=== PATIENT | female | born 1980 | race Caucasian/White ===

== ENCOUNTER 2017-01-01 19:31 | Emergency (ER) | payer OTHER ==
[2017-01-01 19:43] VITALS: BP 147/86
[2017-01-01] MEDS ORDERED: HYDROcodone/ACETAMIN 5-325 MG* 1 TAB PO ONE (20:45)
--- NOTE | 2017-01-01 20:51 | UC ---
Back Pain HPI - HPI Summary HPI Summary: C/o R post hip pain with pain radiating down back of leg. + hx sciatica since 2004, but has not bothered her much until today. She stood up and noted a sharp burning nerve pain. No weakness. No b/b leakage. No new paresth / dysth. 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 No rash. Pain is better standing up, worse sitting down. - History of Current Complaint Chief Complaint: UCBackPain Stated Complaint: LOW BACK PAIN Time Seen by Provider: 01/01/17 20:32 Hx Obtained From: Patient, Family/Online Publisher Hx Last Menstrual Period: 05/2015 ?: No - Allergies/Home Medications Allergies/Adverse Reactions: Allergies Allergy/AdvReac Type Severity Reaction Status Date / Time No Known Allergies Allergy Verified 01/01/17 19:43 Home Medications: Home Medications Magnesium Oxide [Magnesium Oxide-] 400 mg PO TID 01/01/17 [History Confirmed ] Tamoxifen TAB* [Nolvadex 10 MG*] 20 mg PO DAILY 01/01/17 [History Confirmed ] PMH/Surg Hx/FS Hx/Imm Hx Previously Healthy: No - see hpi Endocrine History Of: Denies: Diabetes, Thyroid Disease Cardiovascular History Of: Denies: Cardiac Disorders, Hypertension, Pacemaker/ICD, Congestive Heart Failure Respiratory History Of: Denies: COPD, Asthma GI/ History Of: Denies: Gastroesophageal Reflux, Renal Disease Neurological History Of: Reports: Seizures - at , denies since 1979 Denies: CVA, Dementia Other History Of: Negative For: Anticoagulant Therapy - Surgical History Surgical History: Yes Surgery Procedure, Year, and Place: right lumpectomy with lymph node removal 2014 - Social History Alcohol Use: None Substance Use Type: None Smoking Status (MU): Never Smoked Tobacco Household Exposure Type: Cigarettes Review of Systems Constitutional: Negative Skin: Negative Eyes: Negative ENT: Negative Respiratory: Negative Cardiovascular: Negative Gastrointestinal: Negative Genitourinary: Negative Motor: Other - see hpi Neurovascular: Other - see hpi Musculoskeletal: Other: - see hpi Neurological: Other - see hpi Psychological: Negative All Other Systems Reviewed And Are Negative: Yes Physical Exam Triage Information Reviewed: Yes Appearance: Well-Appearing - but + pain with examination. Examination w/ pt mostly standing up for comfort., Well-Nourished Vital Signs: Initial Vital Signs Temp 97.1 F 01/01/17 19:37 Pulse 110 01/01/17 19:37 Resp 18 01/01/17 19:37 BP 147/86 01/01/17 19:37 Pulse Ox 99 01/01/17 19:37 Vital Signs Reviewed: Yes Eye Exam: Normal - grossly normal ENT Exam: Normal - grossly normal Neck exam: Normal Neck: Positive: Supple, Nontender Respiratory Exam: Normal Respiratory: Positive: Chest non-tender, Lungs clear, Normal breath sounds, No respiratory distress Cardiovascular Exam: Normal Cardiovascular: Positive: RRR, No Murmur, Pulses Normal, Brisk Capillary Refill Abdominal Exam: Normal Musculoskeletal Exam: Other - tender R post hip - subj rad to post thigh Neurological Exam: Other - + ble neuropathy DTR's not tested 2/2 painful sitting on table. She is able to stand on toes, and able to stand on heels. Psychological Exam: Normal Skin Exam: Normal Back Pain Course/Dx - Course Course Of Treatment: [facility] Ref #: [id number]. D/w f/u and coa with pt and family. She is due for a f/u ct scan (2/2 hx breast cancer) soon. Further back imaging as needed can be per pcp. She will call Wednesday to arrange f/u with PCP this week. Denies hx addiction. ISTop referenced, no report. Rx: ibuprofen and norco and flexeril. Questions answered to the best of my ability. - Differential Dx/Diagnosis Provider Diagnoses: Acute exacerbation of R sciatica Discharge - Discharge Plan Condition: Stable Disposition: HOME Prescriptions: HYDROcodone/ACETAMIN 5-325 MG* [[place] 5-325 TAB*] 2 tab PO Q8H PRN #30 tab MDD 6 PRN Reason: Pain Ibuprofen TAB* [Motrin TAB* 600 MG] 600 mg PO Q8H PRN #30 tab PRN Reason: Pain Patient Education Materials: Sciatica (ED), Narcotic Pain Management (ED) Referrals: Tyrone Harmon PA [Primary Care Provider] - Additional Instructions: Follow up with your primary care provider - this week. Call on Wednesday to schedule appointment. Please seek medical attention for worse or new problems in the meantime.
== END 2017-01-01 21:02 | disposition home or self-care (01) ==
LOC: UCCORT 19:31
DX: M54.31 Sciatica, right side (principal); Z77.22 Contact with and (suspected) exposure to environmental tobacco smoke (acute) (chronic)
CPT/HCPCS: 99212; G0463

== ENCOUNTER 2021-04-22 04:53 | Inpatient (IN) ==
[2021-04-22 05:58] LABS: ABS Basophils 0.1 10^3/ul (0-0.2); ABS Lymphocytes 1.4 10^3/ul (1.0-4.8); ABS Monocytes 0.7 10^3/ul (0-0.8); ABS Neutrophils 5.1 10^3/ul (1.5-7.7); Eosinophil % 0.1 %; Hematocrit 39 % (35-47); Hemoglobin 12.2 g/dL (12.0-16.0); Lymphocyte % 19.5 %; Mean Corpuscular HGB Conc 31 g/dL (31-36); Mean Corpuscular Hemoglobin 26 pg (27-31); Mean Corpuscular Volume 84 fL (80-97); Mean Platelet Volume 9.2 fL (7.4-10.4); Nucleated Red Blood Cells % 0.1; Platelet Count 398 10^3/uL (150-450); Red Blood Count 4.71 10^6 /uL (3.70-4.87); Red Cell Distribution Width 15 % (10-15); White Blood Count 7.2 10^3/uL (3.5-10.8)
[2021-04-22 06:15] LABS: ALT 25 U/L (7-52); Albumin 4.7 g/dL (3.2-5.2); Alkaline Phosphatase 152 U/L (35-149); Blood Urea Nitrogen 111 mg/dL (6-24); C Reactive Protein 1.77 mg/L (<8.01); Chloride 73 mmol/L (101-111); Creatine Kinase 16 U/L (10-223); EGFR African American 23.7 (>60); EGFR Non-African American 19.6 (>60); Globulin 4.7 g/dL (2-4); Sodium 140 mmol/L (135-145); Total Protein 9.4 g/dL (6.4-8.9)
[2021-04-22 06:22] LABS: PCO2 Arterial 55 mmHg (35-45); PO2 Arterial 107 mmHg (80-100)
[2021-04-22] MEDS ORDERED: Ondansetron 4 mg VIAL 2 MG/ML 2 ml VIAL IV ONE (06:40)
[2021-04-22] MEDS ORDERED: Dextrose 50% Syringe 50 ml 25 GM/50 ML SYRINGE IV PUSH ONE (06:40)
[2021-04-22 06:47] LABS: CO2 Carbon Dioxide 45 mmol/L (22-32); Calcium 13.5 mg/dL (8.6-10.3); Glucose 45 mg/dL (70-100); Troponin I 0.12 ng/mL (<0.03)
[2021-04-22] MEDS ORDERED: Cefepime 2 GM in NS 0.9% 50 ML 50 ML IVPB ONE (06:51)
[2021-04-22] MEDS ORDERED: LACTATED RINGERS IV ONE (06:51)
[2021-04-22] MEDS ORDERED: Levofloxacin 750 MG IVPREMIX 750 MG/150 ML BAG IVPB ONE (06:51)
[2021-04-22 06:57] LABS: Anion Gap 22 mmol/L (2-11)
[2021-04-22] MEDS ORDERED: NS 0.9% 50 ML 50 ML ONE (07:03)
[2021-04-22] MEDS ORDERED: Cefepime 2 GM IV - ED ONCE IV ONE (08:00)
[2021-04-22] MEDS ORDERED: NS 0.9% 1000 ml BAG 1,000 ML IV SCH (08:15)
[2021-04-22] MEDS: Pantoprazole VIAL 40 MG VIAL IV SCH (08:54)
[2021-04-22 09:26] LABS: INR 1.19 (0.86-1.15)
[2021-04-22 09:49] LABS: AST Redraw 62 U/L (13-39); Potassium Redraw 3.2 mmol/L (3.5-5.0)
[2021-04-22 09:57] LABS: Troponin I 0.12 ng/mL (<0.03)
[2021-04-22 12:54] LABS: Urine Appearance Cloudy; Urine Bilirubin Negative (Negative); Urine Blood 2+ (Negative); Urine Color Amber; Urine Glucose Negative (Negative); Urine Ketones Negative (Negative); Urine Nitrite Negative (Negative); Urine Protein 1+(30 mg/dL) (Negative); Urine Specific Gravity 1.017 (1.002-1.030); Urine Urobilinogen Negative (Negative)
[2021-04-22 12:58] LABS: Urine Bacteria Absent (Absent); Urine Red Blood Cell 1+(3-5/hpf) (Absent); Urine Squamous Epithelial Cell Present (Absent); Urine White Blood Cell 2+(11-20/hpf) (Absent)
[2021-04-22] MEDS ORDERED: Zoledronic Acid 4 MG in NS 0.9% 100 ml BAG 100 ML IVPB ONE (15:41)
[2021-04-22 18:00] LABS: Vitamin D Total 25(OH) 16.4 ng/mL (20-50)
[2021-04-22] MEDS: Cefepime 1 GM in Dextrose 1 GM/50 ML BAG IV SCH (20:28)
[2021-04-22] MEDS: Heparin 5000 UNITS/ML 1 mL VIAL SUBCUT SCH (22:53)
[2021-04-22 23:54] LABS: Calcium 12.2 mg/dL (8.6-10.3)
[2021-04-23] MEDS: Ondansetron 4 mg VIAL 2 MG/ML 2 ml VIAL IV PRN ×2 (01:11→15:36)
[2021-04-23] MEDS: Heparin 5000 UNITS/ML 1 mL VIAL SUBCUT SCH ×3 (05:12→22:51)
[2021-04-23 07:23] LABS: ABS Lymphocytes 0.7 10^3/ul (1.0-4.8); ABS Monocytes 0.3 10^3/ul (0-0.8); ABS Neutrophils 10.2 10^3/ul (1.5-7.7); Eosinophil % 0.1 %; Hematocrit 35 % (35-47); Lymphocyte % 6.3 %; Mean Corpuscular HGB Conc 31 g/dL (31-36); Mean Corpuscular Hemoglobin 26 pg (27-31); Mean Corpuscular Volume 83 fL (80-97); Mean Platelet Volume 9.1 fL (7.4-10.4); Nucleated Red Blood Cells % 0.1; Platelet Count 253 10^3/uL (150-450); Red Blood Count 4.24 10^6 /uL (3.70-4.87); Red Cell Distribution Width 15 % (10-15); White Blood Count 11.3 10^3/uL (3.5-10.8)
[2021-04-23 07:40] LABS: Calcium 11.9 mg/dL (8.6-10.3); Potassium 3.4 mmol/L (3.5-5.0)
[2021-04-23 07:45] LABS: EGFR African American 26.8 (>60); EGFR Non-African American 22.1 (>60)
[2021-04-23] MEDS ORDERED: Potassium Chlor 20 meq TAB.ER PO ONE ×2 (08:25→16:36)
[2021-04-23] MEDS: Pantoprazole VIAL 40 MG VIAL IV SCH (08:33)
[2021-04-23 09:30] LABS: Magnesium 1.2 mg/dL (1.9-2.7)
[2021-04-23] MEDS: Cefepime 1 GM in Dextrose 1 GM/50 ML BAG IV SCH ×2 (09:39→22:49)
[2021-04-23] MEDS ORDERED: Dextrose 50% VIAL 50 ml IV PRN (11:13)
[2021-04-23] MEDS ORDERED: Lactated Ringers 1000 ml BAG 1,000 ML IV SCH (12:00)
[2021-04-23] MEDS ORDERED: D5W 1000 ml BAG 1,000 ML IV SCH ×2 (12:00)
[2021-04-23] MEDS ORDERED: Lactated Ringers 1000 ml BAG 1,000 ML IV ONE ×3 (15:28→17:00)
[2021-04-23 16:28] LABS: Calcium 11.6 mg/dL (8.6-10.3); EGFR African American 28.9 (>60); EGFR Non-African American 23.9 (>60)
[2021-04-23] MEDS ORDERED: Magnesium Sulf 4 GM/100 ML IV 4,000 MG/100 ML BAG IVPB ONE (16:36)
[2021-04-23] MEDS: KCL 20 MEQ/100 ML IVPREMIX 20 MEQ/100 ML BAG IV SCH (23:35)
[2021-04-24] MEDS ORDERED: Lactated Ringers 1000 ml BAG 1,000 ML IV SCH (00:05)
[2021-04-24] MEDS: KCL 20 MEQ/100 ML IVPREMIX 20 MEQ/100 ML BAG IV SCH ×3 (02:16→15:27)
[2021-04-24] MEDS: Heparin 5000 UNITS/ML 1 mL VIAL SUBCUT SCH ×3 (05:41→20:05)
[2021-04-24 08:05] LABS: ABS Basophils 0.1 10^3/ul (0-0.2); ABS Lymphocytes 0.5 10^3/ul (1.0-4.8); ABS Monocytes 0.4 10^3/ul (0-0.8); ABS Neutrophils 8.5 10^3/ul (1.5-7.7); Eosinophil % 0.1 %; Hematocrit 31 % (35-47); Hemoglobin 9.9 g/dL (12.0-16.0); Lymphocyte % 5.4 %; Mean Corpuscular HGB Conc 32 g/dL (31-36); Mean Corpuscular Hemoglobin 26 pg (27-31); Mean Corpuscular Volume 83 fL (80-97); Mean Platelet Volume 9.4 fL (7.4-10.4); Platelet Count 181 10^3/uL (150-450); Red Blood Count 3.73 10^6 /uL (3.70-4.87); Red Cell Distribution Width 15 % (10-15); White Blood Count 9.6 10^3/uL (3.5-10.8)
[2021-04-24 08:20] LABS: EGFR Non-African American 31.7 (>60); Potassium 3.3 mmol/L (3.5-5.0)
[2021-04-24 08:21] LABS: EGFR African American 38.3 (>60); Magnesium 2.3 mg/dL (1.9-2.7)
[2021-04-24] MEDS: Cefepime 1 GM in Dextrose 1 GM/50 ML BAG IV SCH ×2 (08:46→19:42)
[2021-04-24] MEDS: LACTATED RINGERS 1000 ML BAG IV SCH ×2 (08:46→23:17)
[2021-04-24] MEDS: Pantoprazole VIAL 40 MG VIAL IV SCH (08:46)
[2021-04-24] MEDS: Ondansetron 4 mg VIAL 2 MG/ML 2 ml VIAL IV PRN (13:51)
[2021-04-24 15:18] LABS: Kappa Free Light Chain 16.2 mg/dL; Lambda Free Light Chain, S 5.23 mg/dL
[2021-04-24 17:50] LABS: Calcium 10.6 mg/dL (8.6-10.3); EGFR Non-African American 37.2 (>60); Magnesium 1.9 mg/dL (1.9-2.7); Potassium 3.9 mmol/L (3.5-5.0)
[2021-04-25] MEDS: Heparin 5000 UNITS/ML 1 mL VIAL SUBCUT SCH (04:35)
[2021-04-25 04:51] LABS: ABS Basophils 0.1 10^3/ul (0-0.2); ABS Eosinophils 0.1 10^3/ul (0-0.6); ABS Lymphocytes 0.7 10^3/ul (1.0-4.8); ABS Monocytes 0.6 10^3/ul (0-0.8); ABS Neutrophils 5.2 10^3/ul (1.5-7.7); Eosinophil % 1.2 %; Hematocrit 30 % (35-47); Hemoglobin 9.4 g/dL (12.0-16.0); Lymphocyte % 10.2 %; Mean Corpuscular HGB Conc 32 g/dL (31-36); Mean Corpuscular Hemoglobin 26 pg (27-31); Mean Corpuscular Volume 83 fL (80-97); Mean Platelet Volume 9.3 fL (7.4-10.4); Platelet Count 153 10^3/uL (150-450); Red Blood Count 3.59 10^6 /uL (3.70-4.87); Red Cell Distribution Width 15 % (10-15); White Blood Count 6.6 10^3/uL (3.5-10.8)
[2021-04-25 05:07] LABS: ALT 18 U/L (7-52); AST 58 U/L (13-39); Albumin/Globulin Ratio 0.9 (1-3); Alkaline Phosphatase 154 U/L (35-149); Blood Urea Nitrogen 69 mg/dL (6-24); Calcium 10.3 mg/dL (8.6-10.3); Chloride 90 mmol/L (101-111); EGFR African American 52.5 (>60); EGFR Non-African American 43.4 (>60); Globulin 3.2 g/dL (2-4); Glucose 64 mg/dL (70-100); Magnesium 1.6 mg/dL (1.9-2.7); Potassium 3.4 mmol/L (3.5-5.0); Sodium 136 mmol/L (135-145); Total Protein 6.2 g/dL (6.4-8.9)
[2021-04-25 05:08] LABS: Anion Gap 4 mmol/L (2-11); CO2 Carbon Dioxide 42 mmol/L (22-32)
[2021-04-25 05:52] LABS: LDH 335 U/L (140-271)
[2021-04-25] MEDS ORDERED: Magnesium Sulfate IV 3 GM in NS 0.9% 100 ml BAG 100 ML IVPB ONE (05:57)
[2021-04-25] MEDS ORDERED: Potassium Chlor 20 meq TAB.ER PO ONE ×2 (05:57→08:00)
[2021-04-25] MEDS ORDERED: Dextrose 50% Syringe 50 ml 25 GM/50 ML SYRINGE PRN (06:02)
[2021-04-25] MEDS: LACTATED RINGERS 1000 ML BAG IV SCH (06:40)
[2021-04-25] MEDS ORDERED: KCL 20 MEQ/100 ML IVPREMIX 20 MEQ/100 ML BAG IV SCH (07:00)
[2021-04-25 08:15] LABS: Phosphorus < 1.0 mg/dL (2.5-5.0)
[2021-04-25] MEDS: Pantoprazole VIAL 40 MG VIAL IV SCH (08:38)
[2021-04-25] MEDS: Cefepime 1 GM in Dextrose 1 GM/50 ML BAG IV SCH (08:38)
[2021-04-25] MEDS ORDERED: POTASSIUM PHOSPHATE IVPB ONE (09:00)
[2021-04-25] MEDS ORDERED: NS IVPB ONE (09:00)
[2021-04-25] MEDS ORDERED: fentaNYL 100 mcg/2 ml 50 MCG/ML VIAL ONE (13:02)
[2021-04-25 13:54] LABS: PTH Related Peptide 7.6 pmol/L (< or = 4.2)
[2021-04-25] MEDS: NS 0.9% 1000 ml BAG 1,000 ML IV SCH ×2 (14:27→20:48)
[2021-04-25 15:08] LABS: Albumin 3.1 g/dL (3.4-4.7); Albumin/Globulin Ratio 0.77; Gamma Globulin 1.8 g/dL (0.6-1.6); Total Protein(PEP) 7.1 g/dL (6.3 - 7.9)
[2021-04-25] MEDS: Albuterol 2.5mg/3 ml (0.083%) NEB.SOLN INH SCH ×3 (16:22→23:47)
[2021-04-25 17:18] LABS: Anion Gap 9 mmol/L (2-11); Blood Urea Nitrogen 61 mg/dL (6-24); CO2 Carbon Dioxide 36 mmol/L (22-32); Calcium 9.4 mg/dL (8.6-10.3); Chloride 93 mmol/L (101-111); EGFR African American 63.9 (>60); EGFR Non-African American 52.8 (>60); Glucose 66 mg/dL (70-100); Magnesium 1.8 mg/dL (1.9-2.7); Phosphorus 2.9 mg/dL (2.5-5.0); Potassium 3.7 mmol/L (3.5-5.0); Sodium 138 mmol/L (135-145)
[2021-04-25 17:41] LABS: % Iron Saturation 15 % (15-55); Iron 40 ug/dL (50-212); Total Iron Binding Capacity 259 mcg/dL (250-450); Transferrin 185 mg/dL (203-362); Unsaturated Iron Binding < 244 ug/dL
[2021-04-25] MEDS ORDERED: Magnesium Sulfate 2 gm BAG 2 GM/50 ML BAG IVPB ONE (17:49)
[2021-04-25] MEDS: oxyCODONE/Acetamin 5/325 mg TAB PO PRN (17:54)
[2021-04-25 18:01] LABS: Ferritin 179.5 ng/mL (11-307)
[2021-04-26] MEDS: NS 0.9% 1000 ml BAG 1,000 ML IV SCH (03:38)
[2021-04-26] MEDS: Albuterol 2.5mg/3 ml (0.083%) NEB.SOLN INH SCH ×2 (05:15→15:46)
[2021-04-26] MEDS ORDERED: NS 0.9% 1000 ml BAG 1,000 ML IV SCH (06:16)
[2021-04-26 07:49] LABS: Albumin 3.4 g/dL (3.2-5.2); Albumin/Globulin Ratio 0.9 (1-3); Calcium 9.2 mg/dL (8.6-10.3); EGFR African American 75.3 (>60); EGFR Non-African American 62.2 (>60); Globulin 3.8 g/dL (2-4); Magnesium 2.2 mg/dL (1.9-2.7); Phosphorus 1.8 mg/dL (2.5-5.0); Potassium 3.8 mmol/L (3.5-5.0); Total Bilirubin 0.9 mg/dL (0.2-1.0); Total Protein 7.2 g/dL (6.4-8.9)
[2021-04-26] MEDS: Potassium Chlor 20 meq TAB.ER PO SCH (09:06)
[2021-04-26] MEDS: Pantoprazole VIAL 40 MG VIAL IV SCH (09:06)
[2021-04-26] MEDS: oxyCODONE/Acetamin 5/325 mg TAB PO PRN (12:23)
[2021-04-26] MEDS: Enoxaparin 40 MG/0.4 ML SYR SUBCUT SCH (12:23)
[2021-04-27] MEDS: Albuterol 2.5mg/3 ml (0.083%) NEB.SOLN INH SCH ×3 (01:34→11:52)
[2021-04-27] MEDS: Pantoprazole VIAL 40 MG VIAL IV SCH (09:48)
[2021-04-27] MEDS: Potassium Chlor 20 meq TAB.ER PO SCH (09:49)
[2021-04-27 10:12] LABS: ABS Lymphocytes 0.9 10^3/ul (1.0-4.8); ABS Monocytes 0.9 10^3/ul (0-0.8); ABS Neutrophils 3.9 10^3/ul (1.5-7.7); Eosinophil % 0.4 %; Hematocrit 31 % (35-47); Hemoglobin 9.5 g/dL (12.0-16.0); Mean Corpuscular HGB Conc 31 g/dL (31-36); Mean Corpuscular Hemoglobin 26 pg (27-31); Mean Corpuscular Volume 84 fL (80-97); Mean Platelet Volume 9.3 fL (7.4-10.4); Nucleated Red Blood Cells % 0.1; Platelet Count 204 10^3/uL (150-450); Red Blood Count 3.68 10^6 /uL (3.70-4.87); Red Cell Distribution Width 16 % (10-15); White Blood Count 5.7 10^3/uL (3.5-10.8)
[2021-04-27 10:26] LABS: Albumin 3.2 g/dL (3.2-5.2); Albumin/Globulin Ratio 0.9 (1-3); Calcium 8.5 mg/dL (8.6-10.3); EGFR African American 112.9 (>60); EGFR Non-African American 93.3 (>60); Globulin 3.6 g/dL (2-4); Magnesium 1.3 mg/dL (1.9-2.7); Phosphorus 1.4 mg/dL (2.5-5.0); Potassium 3.9 mmol/L (3.5-5.0); Total Bilirubin 0.9 mg/dL (0.2-1.0); Total Protein 6.8 g/dL (6.4-8.9)
[2021-04-27] MEDS ORDERED: Magnesium Sulf 4 GM/100 ML IV 4,000 MG/100 ML BAG IVPB ONE (11:36)
[2021-04-27] MEDS: Potassium & Sodium Phos 250 mg = 1 PACKET PO SCH ×2 (12:35→21:32)
[2021-04-27] MEDS: Enoxaparin 40 MG/0.4 ML SYR SUBCUT SCH (12:35)
[2021-04-28 07:21] LABS: ABS Basophils 0.1 10^3/ul (0-0.2); ABS Lymphocytes 0.7 10^3/ul (1.0-4.8); ABS Monocytes 0.7 10^3/ul (0-0.8); ABS Neutrophils 3.9 10^3/ul (1.5-7.7); Eosinophil % 0.1 %; Hematocrit 30 % (35-47); Hemoglobin 9.5 g/dL (12.0-16.0); Lymphocyte % 12.7 %; Mean Corpuscular HGB Conc 32 g/dL (31-36); Mean Corpuscular Hemoglobin 27 pg (27-31); Mean Corpuscular Volume 84 fL (80-97); Mean Platelet Volume 9.4 fL (7.4-10.4); Nucleated Red Blood Cells % 0.1; Platelet Count 199 10^3/uL (150-450); Red Blood Count 3.58 10^6 /uL (3.70-4.87); Red Cell Distribution Width 16 % (10-15); White Blood Count 5.4 10^3/uL (3.5-10.8)
[2021-04-28 07:39] LABS: EGFR Non-African American 132.2 (>60); Magnesium 1.6 mg/dL (1.9-2.7); Phosphorus 1.7 mg/dL (2.5-5.0)
[2021-04-28] MEDS ORDERED: Magnesium Sulfate IV 3 GM in NS 0.9% 100 ml BAG 100 ML IVPB ONE (09:00)
[2021-04-28] MEDS: Potassium & Sodium Phos 250 mg = 1 PACKET PO SCH ×3 (09:46→20:18)
[2021-04-28] MEDS: Pantoprazole VIAL 40 MG VIAL IV SCH (09:46)
[2021-04-28] MEDS: Potassium Chlor 20 meq TAB.ER PO SCH (09:47)
[2021-04-28] MEDS: Albuterol 2.5mg/3 ml (0.083%) NEB.SOLN INH SCH (11:41)
[2021-04-28] MEDS: Enoxaparin 40 MG/0.4 ML SYR SUBCUT SCH (11:42)
[2021-04-28] MEDS: Ondansetron 4 mg VIAL 2 MG/ML 2 ml VIAL IV PRN (12:16)
[2021-04-28] MEDS ORDERED: Iohexol 350 (CONTRAST) 500 ML MDV IV ONE (12:51)
[2021-04-28 14:19] LABS: XCalcitriol <8.0 pg/mL (18-78)
[2021-04-29] MEDS: Albuterol 2.5mg/3 ml (0.083%) NEB.SOLN INH SCH ×3 (06:56→16:52)
[2021-04-29] MEDS: Potassium Chlor 20 meq TAB.ER PO SCH (07:58)
[2021-04-29] MEDS: Pantoprazole VIAL 40 MG VIAL IV SCH (07:58)
[2021-04-29] MEDS: Potassium & Sodium Phos 250 mg = 1 PACKET PO SCH ×3 (07:58→19:30)
[2021-04-29 09:02] LABS: ABS Basophils 0.1 10^3/ul (0-0.2); ABS Lymphocytes 0.7 10^3/ul (1.0-4.8); ABS Monocytes 0.7 10^3/ul (0-0.8); ABS Neutrophils 4.3 10^3/ul (1.5-7.7); Eosinophil % 0.1 %; Hematocrit 31 % (35-47); Hemoglobin 9.5 g/dL (12.0-16.0); Lymphocyte % 11.7 %; Mean Corpuscular HGB Conc 31 g/dL (31-36); Mean Corpuscular Hemoglobin 26 pg (27-31); Mean Corpuscular Volume 86 fL (80-97); Mean Platelet Volume 8.8 fL (7.4-10.4); Nucleated Red Blood Cells % 0.1; Platelet Count 272 10^3/uL (150-450); Red Blood Count 3.64 10^6 /uL (3.70-4.87); Red Cell Distribution Width 17 % (10-15); White Blood Count 5.7 10^3/uL (3.5-10.8)
[2021-04-29 09:18] LABS: Albumin 3.3 g/dL (3.2-5.2); Albumin/Globulin Ratio 0.8 (1-3); Calcium 7.8 mg/dL (8.6-10.3); EGFR African American 163.7 (>60); EGFR Non-African American 135.3 (>60); Globulin 3.9 g/dL (2-4); Magnesium 1.5 mg/dL (1.9-2.7); Phosphorus 2.3 mg/dL (2.5-5.0); Potassium 4.6 mmol/L (3.5-5.0); Total Bilirubin 0.9 mg/dL (0.2-1.0); Total Protein 7.2 g/dL (6.4-8.9)
[2021-04-29] MEDS ORDERED: methylPREDNISolone 125 mg 2 ML VIAL IV PRN (11:19)
[2021-04-29] MEDS ORDERED: Famotidine IV 10 MG/ML 2 ml VIAL (20 mg) IV SLOW PU PRN (11:20)
[2021-04-29] MEDS ORDERED: diPHENhydraMINE IV 50 MG/ML 1 ml VIAL (BENADRYL) SLOW PUSH PRN (11:21)
[2021-04-29] MEDS ORDERED: Ondansetron 4 mg VIAL 2 MG/ML 2 ml VIAL IV PRN (11:22)
[2021-04-29] MEDS ORDERED: NS 0.9% IVPB ONE (12:00)
[2021-04-29] MEDS ORDERED: NS 0.9% IVPB SCH (12:00)
[2021-04-29] MEDS ORDERED: Dexamethasone IV 20 MG in Premix IV 0 ML IVPB SCH (12:00)
[2021-04-29] MEDS ORDERED: Famotidine IV 10 MG/ML 2 ml VIAL (20 mg) IV SLOW PU SCH (12:00)
[2021-04-29] MEDS ORDERED: GEMCITABINE IVPB SCH (12:00)
[2021-04-29] MEDS ORDERED: diPHENhydraMINE IV 50 MG/ML 1 ml VIAL (BENADRYL) SLOW PUSH SCH (12:00)
[2021-04-29] MEDS ORDERED: Ondansetron 4 mg VIAL 2 MG/ML 2 ml VIAL IV SCH (12:00)
[2021-04-29] MEDS ORDERED: PACLITAXEL IVPB ONE (12:00)
[2021-04-29] MEDS ORDERED: Magnesium Sulf 4 GM/100 ML IV 4,000 MG/100 ML BAG IVPB ONE (12:30)
[2021-04-30] MEDS: Albuterol 2.5mg/3 ml (0.083%) NEB.SOLN INH SCH ×4 (02:48→18:02)
[2021-04-30 06:09] LABS: ABS Lymphocytes 0.4 10^3/ul (1.0-4.8); ABS Monocytes 0.4 10^3/ul (0-0.8); ABS Neutrophils 2.9 10^3/ul (1.5-7.7); Hematocrit 27 % (35-47); Hemoglobin 8.1 g/dL (12.0-16.0); Lymphocyte % 11.3 %; Mean Corpuscular HGB Conc 31 g/dL (31-36); Mean Corpuscular Hemoglobin 26 pg (27-31); Mean Corpuscular Volume 85 fL (80-97); Mean Platelet Volume 8.6 fL (7.4-10.4); Nucleated Red Blood Cells % 0.1; Platelet Count 314 10^3/uL (150-450); Red Blood Count 3.13 10^6 /uL (3.70-4.87); Red Cell Distribution Width 17 % (10-15); White Blood Count 3.7 10^3/uL (3.5-10.8)
[2021-04-30 06:27] LABS: Calcium 6.7 mg/dL (8.6-10.3); EGFR African American 146.7 (>60); EGFR Non-African American 121.2 (>60); Magnesium 1.8 mg/dL (1.9-2.7); Potassium 4.8 mmol/L (3.5-5.0)
[2021-04-30] MEDS: Potassium Chlor 20 meq TAB.ER PO SCH (08:03)
[2021-04-30] MEDS: Pantoprazole VIAL 40 MG VIAL IV SCH (08:03)
[2021-04-30] MEDS ORDERED: Enoxaparin 40 MG/0.4 ML SYR SUBCUT SCH (18:00)
[2021-04-30] MEDS ORDERED: Albuterol 2.5mg/3 ml (0.083%) NEB.SOLN INH SCH (19:00)
[2021-04-30] MEDS: oxyCODONE/Acetamin 5/325 mg TAB PO PRN (23:17)
[2021-05-01 05:36] LABS: ABS Lymphocytes 0.5 10^3/ul (1.0-4.8); ABS Monocytes 0.1 10^3/ul (0-0.8); ABS Neutrophils 3.5 10^3/ul (1.5-7.7); Eosinophil % 0.1 %; Hematocrit 27 % (35-47); Hemoglobin 8.3 g/dL (12.0-16.0); Lymphocyte % 11.9 %; Mean Corpuscular HGB Conc 31 g/dL (31-36); Mean Corpuscular Hemoglobin 26 pg (27-31); Mean Corpuscular Volume 84 fL (80-97); Mean Platelet Volume 8.8 fL (7.4-10.4); Platelet Count 305 10^3/uL (150-450); Red Blood Count 3.15 10^6 /uL (3.70-4.87); Red Cell Distribution Width 17 % (10-15); White Blood Count 4.1 10^3/uL (3.5-10.8)
[2021-05-01 05:51] LABS: EGFR African American 135.3 (>60); EGFR Non-African American 111.8 (>60); Potassium 3.8 mmol/L (3.5-5.0)
[2021-05-01 05:58] LABS: Calcium 6.4 mg/dL (8.6-10.3)
[2021-05-01] MEDS ORDERED: Gadoteridol (CONTRAST) 279.3 MG/ML 10 ML IV ONE (08:11)
[2021-05-01] MEDS ORDERED: Gadoteridol (CONTRAST) 279.3 MG/ML 10 ML IV SCH (09:00)
[2021-05-01] MEDS: Potassium Chlor 20 meq TAB.ER PO SCH (09:37)
[2021-05-01] MEDS: Pantoprazole VIAL 40 MG VIAL IV SCH (09:37)
[2021-05-01 09:47] LABS: Magnesium 1.4 mg/dL (1.9-2.7)
[2021-05-01] MEDS ORDERED: CALCIUM GLUCONATE 1GM/50ML NS 1 GM/50 ML BAG IV ONE (10:34)
[2021-05-01] MEDS ORDERED: Magnesium Sulf 4 GM/100 ML IV 4,000 MG/100 ML BAG IVPB ONE (10:34)
[2021-05-01 12:36] VITALS: BP 105/60
[2021-05-01] MEDS ORDERED: Calcium Carb (TUMS) 500 mg CHEW TAB PO SCH (21:00)
== END 2021-05-01 13:25 | disposition home health service (06) | DRG 343 ==
LOC: ED 04:53 → MED 08:03
PROVIDERS: ADMIT Hospitalist; ATTEND Internal Medicine

== ENCOUNTER 2021-05-10 13:57 | Inpatient (IN) ==
[2021-05-10 15:12] LABS: Hematocrit 23 % (35-47); Hemoglobin 7.3 g/dL (12.0-16.0); Mean Corpuscular HGB Conc 32 g/dL (31-36); Mean Corpuscular Hemoglobin 27 pg (27-31); Mean Corpuscular Volume 83 fL (80-97); Mean Platelet Volume 7.5 fL (7.4-10.4); Platelet Count 199 10^3/uL (150-450); Red Blood Count 2.74 10^6 /uL (3.70-4.87); Red Cell Distribution Width 17 % (10-15); White Blood Count 0.9 10^3/uL (3.5-10.8)
[2021-05-10 15:18] LABS: ABS Lymphocytes 0.5 10^3/ul (1.0-4.8); Eosinophil % 0.3 %; Lymphocyte % 49.3 %; Nucleated Red Blood Cells % 0.3
[2021-05-10 15:20] LABS: ABS Neutrophils 0.4 10^3/ul (1.5-7.7)
[2021-05-10 15:31] LABS: Albumin 2.9 g/dL (3.2-5.2); Albumin/Globulin Ratio 0.9 (1-3); EGFR African American 116.8 (>60); EGFR Non-African American 96.5 (>60); Globulin 3.4 g/dL (2-4); Magnesium 1.1 mg/dL (1.9-2.7); Potassium 4.5 mmol/L (3.5-5.0); Total Protein 6.3 g/dL (6.4-8.9)
[2021-05-10 15:49] LABS: Calcium 5.8 mg/dL (8.6-10.3)
[2021-05-10] MEDS ORDERED: Magnesium Sulfate 2 gm BAG 2 GM/50 ML BAG IVPB ONE ×2 (16:20→16:42)
[2021-05-10 16:34] LABS: C Reactive Protein 164.51 mg/L (<8.01)
[2021-05-10] MEDS ORDERED: Al Hydrox/Mg Hydrox/Simet LIQ 30 ML UDC PO PRN (16:36)
[2021-05-10] MEDS ORDERED: Ondansetron 4 mg VIAL 2 MG/ML 2 ml VIAL IV PRN (16:36)
[2021-05-10] MEDS ORDERED: Vancomycin 1,000 MG in NS 0.9% 250 ml 250 ML IVPB ONE (16:40)
[2021-05-10] MEDS ORDERED: oxyCODONE/Acetamin 5/325 mg TAB PO PRN (16:40)
[2021-05-10] MEDS ORDERED: Magnesium Sulf 4 GM/100 ML IV 4,000 MG/100 ML BAG IVPB ONE (16:41)
[2021-05-10 17:00] LABS: Basophilic Stippling 1+; Microcytosis 1+
[2021-05-10] MEDS ORDERED: Cefepime ADVAN 2 GM in NS 0.9% 50 ML 50 ML IVPB SCH (17:00)
[2021-05-10] MEDS ORDERED: Vancomycin per Pharmacy 1 EA NOTE FOLLOW UP SCH (17:00)
[2021-05-10 17:01] LABS: Hypochromasia 1+
[2021-05-10] MEDS ORDERED: CALCIUM GLUCONATE 1GM/50ML NS 1 GM/50 ML BAG IV ONE (17:23)
[2021-05-10 17:43] LABS: Urine Appearance Cloudy; Urine Bilirubin Negative (Negative); Urine Blood 2+ (Negative); Urine Color Amber; Urine Glucose 3+(>=500 mg/dL) (Negative); Urine Ketones 1+ (Negative); Urine Nitrite Negative (Negative); Urine Protein 2+(100 mg/dL) (Negative); Urine Specific Gravity 1.017 (1.002-1.030); Urine Urobilinogen Negative (Negative)
[2021-05-10 18:04] LABS: Urine Bacteria Absent (Absent); Urine Red Blood Cell Trace(0-2/hpf) (Absent); Urine Squamous Epithelial Cell Present (Absent); Urine White Blood Cell Trace(0-5/hpf) (Absent)
[2021-05-10] MEDS ORDERED: NS 0.9% 500 ml BAG 500 ML IV ONE (18:42)
[2021-05-10] MEDS: Enoxaparin 40 MG/0.4 ML SYR SUBCUT SCH (20:36)
[2021-05-10] MEDS: CEFEPIME 2 GM in Dextrose 50 mL IV SCH (21:06)
[2021-05-10] MEDS: Vancomycin 1000 MG in NS 0.9% 250 ML IVPB SCH (23:43)
[2021-05-11] MEDS: Magic MouthWash2-BEN/MAAL/LIDO/NYST 240 ML BTL (alt formulation) SWISH SWAL SCH ×5 (01:17→21:40)
[2021-05-11 04:45] LABS: Hematocrit 22 % (35-47); Hemoglobin 6.8 g/dL (12.0-16.0); Mean Corpuscular HGB Conc 31 g/dL (31-36); Mean Corpuscular Hemoglobin 26 pg (27-31); Mean Corpuscular Volume 85 fL (80-97); Mean Platelet Volume 7.4 fL (7.4-10.4); Platelet Count 152 10^3/uL (150-450); Red Blood Count 2.57 10^6 /uL (3.70-4.87); Red Cell Distribution Width 17 % (10-15)
[2021-05-11 04:54] LABS: Potassium 4.4 mmol/L (3.5-5.0)
[2021-05-11 05:00] LABS: EGFR Non-African American 83.5 (>60)
[2021-05-11] MEDS: CEFEPIME 2 GM in Dextrose 50 mL IV SCH ×2 (05:10→16:11)
[2021-05-11 05:11] LABS: Calcium 5.7 mg/dL (8.6-10.3)
[2021-05-11 05:18] LABS: ABS Lymphocytes 0.6 10^3/ul (1.0-4.8); ABS Neutrophils 1.4 10^3/ul (1.5-7.7); Eosinophil % 0.1 %; Lymphocyte % 28.5 %; Nucleated Red Blood Cells % 0.1; RBC Morphology Normal (Normal)
[2021-05-11 05:44] LABS: Magnesium 2.2 mg/dL (1.9-2.7)
[2021-05-11] MEDS: Vancomycin 1000 MG in NS 0.9% 250 ML IVPB SCH ×3 (08:00→21:29)
[2021-05-11] MEDS: Enoxaparin 40 MG/0.4 ML SYR SUBCUT SCH (15:10)
[2021-05-11] MEDS ORDERED: Vancomycin Trough Check NOTE FOLLOW UP ONE (15:30)
[2021-05-11] MEDS ORDERED: Dextrose 50% Syringe 50 ml 25 GM/50 ML SYRINGE IV PUSH PRN (16:58)
[2021-05-12] MEDS: CEFEPIME 2 GM in Dextrose 50 mL IV SCH (05:37)
[2021-05-12 05:40] LABS: Hematocrit 23 % (35-47); Hemoglobin 7.3 g/dL (12.0-16.0); Mean Corpuscular HGB Conc 31 g/dL (31-36); Mean Corpuscular Hemoglobin 26 pg (27-31); Mean Corpuscular Volume 84 fL (80-97); Mean Platelet Volume 7.3 fL (7.4-10.4); Platelet Count 142 10^3/uL (150-450); Red Blood Count 2.76 10^6 /uL (3.70-4.87); Red Cell Distribution Width 17 % (10-15); White Blood Count 8.6 10^3/uL (3.5-10.8)
[2021-05-12 05:50] LABS: Albumin 2.8 g/dL (3.2-5.2); Potassium 4.3 mmol/L (3.5-5.0); Total Bilirubin 0.6 mg/dL (0.2-1.0)
[2021-05-12 05:56] LABS: Albumin/Globulin Ratio 0.8 (1-3); EGFR African American 87.6 (>60); EGFR Non-African American 72.4 (>60); Globulin 3.4 g/dL (2-4); Phosphorus 2.4 mg/dL (2.5-5.0); Total Protein 6.2 g/dL (6.4-8.9)
[2021-05-12 06:14] LABS: Calcium 5.7 mg/dL (8.6-10.3)
[2021-05-12 07:55] LABS: ABS Lymphocytes 1.3 10^3/ul (1.0-4.8); ABS Monocytes 0.1 10^3/ul (0-0.8); ABS Neutrophils 7.1 10^3/ul (1.5-7.7); Anisocytosis 1+; Hypochromasia 1+; Lymphocyte % 15.5 %; Nucleated Red Blood Cells % 0.1; Polychromasia 1+
[2021-05-12] MEDS ORDERED: Morphine 2 MG/ML SYRINGE IV PRN ×4 (09:05→14:00)
[2021-05-12] MEDS: Vancomycin 1000 MG in NS 0.9% 250 ML IVPB SCH (09:20)
[2021-05-12] MEDS: Magic MouthWash2-BEN/MAAL/LIDO/NYST 240 ML BTL (alt formulation) SWISH SWAL SCH (09:45)
[2021-05-12] MEDS ORDERED: Sodium Phosphate IV 15 MMOLE in NS 0.9% 250 ml 250 ML IV ONE (10:00)
[2021-05-12] MEDS ORDERED: Morphine 2 MG/ML SYRINGE IV ONE (12:15)
[2021-05-12] MEDS ORDERED: LORazepam 2 mg VIAL 1 ml IV PUSH PRN (13:50)
[2021-05-12] MEDS ORDERED: Lorazepam PYXIS KEY PRN (13:50)
[2021-05-12 14:07] VITALS: BP 70/44
[2021-05-13] MEDS ORDERED: Vancomycin Trough Check NOTE FOLLOW UP ONE (09:30)
== END 2021-05-12 14:17 | disposition expired | DRG 143 ==
LOC: ED 13:57 → ICU 19:17
PROVIDERS: ADMIT Internal Medicine; ATTEND Internal Medicine